=== PATIENT | female | born 1970 | race Asian ===

== ENCOUNTER → 2020-12-30 | Emergency (ER) | payer MEDICAID ==
[~2020-12-30] VITALS: Ht 165.1 cm; Wt 63.6 kg
[~2020-12-30] MED LIST: ALBU8HFA PO; LIDOcaine 1% W/epiNEPHrine 1:200,000 10ml vial IJ ONE; bacitracin 15gm ointment TP ONE
[2020-12-30 07:44] VITALS: BP 118/69
--- NOTE | 2020-12-30 09:12 | NUR ---
[employer] TACKER WILL DRESS THE WOUND WITH BACITRACIN.
== END | disposition home or self-care (01) ==
LOC: ER 07:10
DX: S61.211A Laceration without foreign body of left index finger without damage to nail, initial encounter (principal); W26.0XXA Contact with knife, initial encounter; Y93.89 Activity, other specified; Y92.89 Other specified places as the place of occurrence of the external cause; Y99.8 Other external cause status
CPT/HCPCS: 12001; 99283

== ENCOUNTER 2021-01-13 14:07 | Emergency (ER) | payer MEDICAID ==
[~2021-01-13] VITALS: Ht 165.1 cm; Wt 62.3 kg
[~2021-01-13 14:07] MED LIST changes: -LIDOcaine 1% W/epiNEPHrine 1:200,000 10ml vial IJ ONE; -bacitracin 15gm ointment TP ONE
[2021-01-13 14:09] VITALS: BP 122/70
--- NOTE | 2021-01-13 14:18 | NUR ---
PT TO RAP AREA FOR POSSIBLE COVID SYMPTOMS, PROVIDER SAW PT IN TRIAGE AND REMOVED SUTURES
[2021-01-13] MEDS ORDERED: DOXY100C97 PO (14:19)
== END 2021-01-13 15:06 | disposition home or self-care (01) ==
LOC: ER 14:07
DX: U07.1 COVID-19 (principal); S61.211D Laceration without foreign body of left index finger without damage to nail, subsequent encounter; Z79.2 Long term (current) use of antibiotics; X58.XXXD Exposure to other specified factors, subsequent encounter
CPT/HCPCS: 87635; 99283; C9803

== ENCOUNTER 2021-01-29 07:37 | Emergency (ER) | payer MEDICAID ==
[~2021-01-29] VITALS: Ht 165.1 cm; Wt 62.6 kg
[2021-01-29 08:32] VITALS: BP 140/80
== END 2021-01-29 09:01 | disposition home or self-care (01) ==
LOC: ER 07:38
DX: S61.412D Laceration without foreign body of left hand, subsequent encounter (principal); T30.0 Burn of unspecified body region, unspecified degree; X08.8XXD Exposure to other specified smoke, fire and flames, subsequent encounter
CPT/HCPCS: 99281